=== PATIENT | female | born 1990 | race Caucasian/White ===

== ENCOUNTER 2020-07-21 17:47 | Emergency (ER) | payer BC ==
[2020-07-21 17:52] VITALS: BP 126/86; PULSE 100; RESP 18; TEMP 98.5
[2020-07-21] MEDS ORDERED: MORPHINE SULFATE 4 MG/ML SYRINGE IV STA (18:49)
[2020-07-21] MEDS ORDERED: SODIUM CHLORIDE 0.9% 1,000 ML IV STA (18:49)
--- NOTE | 2020-07-21 18:50 | ED ---
Abdominal Pain HPI - General Chief Complaint: Abdominal Pain Stated Complaint: Abd pain Time Seen by Provider: 07/21/20 17:55 Source: patient Mode of arrival: ambulatory Limitations: no limitations - History of Present Illness Initial Comments: Patient is a 30-year-old female with past surgical history of hysterectomy with bilateral salpingo-oophorectomy, appendectomy who presents to the emergency department with reported right lower quadrant abdominal pain. Patient reports that the pain has been present for the past 6-7 years. She had an appendectomy and hysterectomy due to the pain however reports that she continues to suffer from it. Denies dysuria, hematuria or difficulty voiding. Denies melenic stools or hematochezia. Does have a family history of inflammatory bowel disease. Dad suffers from Crohn's. No fevers or chills. Reports the pain became worse today. She works at a factory lifting heavy boxes. States that she felt a bulge in the right lower quadrant. Pain has been constant since onset. She does not take any medications at home for her symptoms. Denies any abnormal vaginal discharge. No back or flank pain. No other alleviating, precipitating or modifying factors - Related Data Allergies Allergy/AdvReac Type Severity Reaction Status Date / Time No Known Allergies Allergy Verified 07/21/20 17:52 Review of Systems ROS Statement: Those systems with pertinent positive or pertinent negative responses have been documented in the HPI. ROS Other: All systems not noted in ROS Statement are negative. Past Medical History Past Medical History: No Reported History History of Any Multi-Drug Resistant Organisms: None Reported Past Surgical History: Adenoidectomy, Section, Hysterectomy, Orthopedic Surgery Past Psychological History: No Psychological Hx Reported Smoking Status: Current every day smoker Past Alcohol Use History: Occasional Past Drug Use History: None Reported General Exam Limitations: no limitations Course Vital Signs 07/21/20 17:50 Temperature 98.5 F Pulse Rate 100 Respiratory 18 Rate Blood Pressure 126/86 O2 Sat by Pulse 99 Oximetry Medical Decision Making - Medical Decision Making Upon arrival patient is placed in room 22. A thorough history and physical exam was performed. Patient is tender in the right lower quadrant. No signs of hernia. Did recommend laboratory studies and a CT. I would raises are reviewed and discussed the patient. CT does demonstrate cholelithiasis however no signs of pathology within the right lower quadrant. Results are discussed the patient. Did recommend follow-up with Dr. Coates for colonoscopy due to the history of inflammatory bowel disease in immediate family. The patient agreed to this. Given written and verbal discharge instructions and discharged home in stable condition. She is asked to return to the emergency room for any new or worsening symptoms - Lab Data Result diagrams: 07/21/20 19:07 07/21/20 19:07 Lab Results 07/21/20 07/21/20 07/21/20 Range/Units 19:07 19:07 19:07 WBC 9.9 (3.8-10.6) k/uL RBC 4.50 (3.80-5.40) m/uL Hgb 14.2 (11.4-16.0) gm/dL Hct 43.3 (34.0-46.0) % MCV 96.2 (80.0-100.0) fL MCH 31.6 (25.0-35.0) pg MCHC 32.8 (31.0-37.0) g/dL RDW 12.6 (11.5-15.5) % Plt Count 216 (150-450) k/uL MPV 7.6 Neutrophils % 62 % Lymphocytes % 28 % Monocytes % 5 % Eosinophils % 2 % Basophils % 1 % Neutrophils # 6.2 (1.3-7.7) k/uL Lymphocytes # 2.8 (1.0-4.8) k/uL Monocytes # 0.5 (0-1.0) k/uL Eosinophils # 0.2 (0-0.7) k/uL Basophils # 0.1 (0-0.2) k/uL Sodium 138 (137-145) mmol/L Potassium 3.6 (3.5-5.1) mmol/L Chloride 103 (98-107) mmol/L Carbon Dioxide 28 (22-30) mmol/L Anion Gap 7 mmol/L BUN 11 (7-17) mg/dL Creatinine 0.71 (0.52-1.04) mg/dL Est GFR (CKD-EPI)AfAm >90 (>60 ml/min/1.73 sqM) Est GFR (CKD-EPI)NonAf >90 (>60 ml/min/1.73 sqM) Glucose 90 (74-99) mg/dL Plasma Lactic Acid Terry (0.7-2.0) mmol/L Calcium 9.5 (8.4-10.2) mg/dL Total Bilirubin 0.3 (0.2-1.3) mg/dL AST 21 (14-36) U/L ALT 13 (4-34) U/L Alkaline Phosphatase 69 (38-126) U/L Total Protein 7.3 (6.3-8.2) g/dL Albumin 4.5 (3.5-5.0) g/dL Lipase 121 (23-300) U/L Urine Color Yellow Urine Appearance Clear (Clear) Urine pH 6.5 (5.0-8.0) Ur Specific [place] 1.020 (1.001-1.035) Urine Protein Negative (Negative) Urine Glucose (UA) Negative (Negative) Urine Ketones Negative (Negative) Urine Blood Negative (Negative) Urine Nitrite Negative (Negative) Urine Bilirubin Negative (Negative) Urine Urobilinogen <2.0 (<2.0) mg/dL Ur Leukocyte Esterase Negative (Negative) 07/21/20 Range/Units 19:07 WBC (3.8-10.6) k/uL RBC (3.80-5.40) m/uL Hgb (11.4-16.0) gm/dL Hct (34.0-46.0) % MCV (80.0-100.0) fL MCH (25.0-35.0) pg MCHC (31.0-37.0) g/dL RDW (11.5-15.5) % Plt Count (150-450) k/uL MPV Neutrophils % % Lymphocytes % % Monocytes % % Eosinophils % % Basophils % % Neutrophils # (1.3-7.7) k/uL Lymphocytes # (1.0-4.8) k/uL Monocytes # (0-1.0) k/uL Eosinophils # (0-0.7) k/uL Basophils # (0-0.2) k/uL Sodium (137-145) mmol/L Potassium (3.5-5.1) mmol/L Chloride (98-107) mmol/L Carbon Dioxide (22-30) mmol/L Anion Gap mmol/L BUN (7-17) mg/dL Creatinine (0.52-1.04) mg/dL Est GFR (CKD-EPI)AfAm (>60 ml/min/1.73 sqM) Est GFR (CKD-EPI)NonAf (>60 ml/min/1.73 sqM) Glucose (74-99) mg/dL Plasma Lactic Acid Terry 0.9 (0.7-2.0) mmol/L Calcium (8.4-10.2) mg/dL Total Bilirubin (0.2-1.3) mg/dL AST (14-36) U/L ALT (4-34) U/L Alkaline Phosphatase (38-126) U/L Total Protein (6.3-8.2) g/dL Albumin (3.5-5.0) g/dL Lipase (23-300) U/L Urine Color Urine Appearance (Clear) Urine pH (5.0-8.0) Ur Specific [place] (1.001-1.035) Urine Protein (Negative) Urine Glucose (UA) (Negative) Urine Ketones (Negative) Urine Blood (Negative) Urine Nitrite (Negative) Urine Bilirubin (Negative) Urine Urobilinogen (<2.0) mg/dL Ur Leukocyte Esterase (Negative) Disposition Clinical Impression: Abdominal pain Disposition: HOME SELF-CARE Condition: Stable Instructions (If sedation given, give patient instructions): Abdominal Pain (ED) Additional Instructions: I recommend you follow up with Dr. Garcia for a colonoscopy. Return to the emergency room for any new or worsening symptoms Is patient prescribed a controlled substance at d/c from ED?: No Referrals: Raphael Clements MD [Primary Care Provider] - 1-2 days Adina Garcia MD [STAFF PHYSICIAN] - 1-2 days Time of Disposition: 20:22
[2020-07-21 19:13] LABS: Basophils # (A) 0.1 k/uL (0-0.2); Basophils % (A) 1 %; Eosinophils # (A) 0.2 k/uL (0-0.7); Eosinophils % (A) 2 %; HCT 43.3 % (34.0-46.0); HGB 14.2 gm/dL (11.4-16.0); Lymphocytes # (A) 2.8 k/uL (1.0-4.8); Lymphocytes % (A) 28 %; MCH 31.6 pg (25.0-35.0); MCHC 32.8 g/dL (31.0-37.0); MCV 96.2 fL (80.0-100.0); Mean Platelet Volume 7.6; Monocytes # (A) 0.5 k/uL (0-1.0); Monocytes % (A) 5 %; Neutrophils # (A) 6.2 k/uL (1.3-7.7); Neutrophils % (A) 62 %; Platelet Count 216 k/uL (150-450); RDW 12.6 % (11.5-15.5); WBC 9.9 k/uL (3.8-10.6)
[2020-07-21 19:16] LABS: Appearance,Urine Clear (Clear); Bilirubin,Urine Negative (Negative); Blood,Urine Negative (Negative); Color,Urine Yellow; Glucose,Urine (UA) Negative (Negative); Ketones,Urine Negative (Negative); Leukocyte Esterase,Urine Negative (Negative); Nitrite,Urine Negative (Negative); PH, Urine 6.5 (5.0-8.0); Protein,Urine Negative (Negative); Urobilinogen,Urine <2.0 mg/dL (<2.0)
[2020-07-21 19:23] LABS: ALT 13 U/L (4-34); AST 21 U/L (14-36); African American GFR (CKD) >90 (>60 ml/min/1.73 sqM); Albumin 4.5 g/dL (3.5-5.0); Alkaline Phosphatase 69 U/L (38-126); Anion Gap 7 mmol/L; Blood Urea Nitrogen 11 mg/dL (7-17); Calcium 9.5 mg/dL (8.4-10.2); Carbon Dioxide 28 mmol/L (22-30); Chloride 103 mmol/L (98-107); Glucose 90 mg/dL (74-99); Lipase 121 U/L (23-300); Non-African American GFR(CKD) >90 (>60 ml/min/1.73 sqM); Potassium 3.6 mmol/L (3.5-5.1); Sodium 138 mmol/L (137-145); Total Bilirubin 0.3 mg/dL (0.2-1.3); Total Protein 7.3 g/dL (6.3-8.2)
--- NOTE | 2020-07-21 19:56 | CT ---
EXAMINATION TYPE: CT abdomen pelvis w con DATE OF EXAM: 07/21/2020 COMPARISON: None available. HISTORY: Right lower quadrant abdominal pain. CT DLP: 1169.5 mGycm Automated exposure control for dose reduction was used. TECHNIQUE: Helical acquisition of images was performed from the lung bases through the pelvis. CONTRAST: Performed without Oral Contrast and with IV Contrast, patient injected with 100ml mL of Isovue 300. FINDINGS: LUNG BASES: No significant abnormality is appreciated. LIVER/GB: No acute abnormality is appreciated. Gallstones without acute cholecystitis. PANCREAS: No significant abnormality is seen. SPLEEN: No significant abnormality is seen. ADRENALS: No significant abnormality is seen. KIDNEYS: No significant abnormality is seen. FREE AIR: No free air is visualized. RETROPERITONEAL ADENOPATHY: None visualized REPRODUCTIVE ORGANS: No significant abnormality is seen URINARY BLADDER: No significant abnormality is seen. PELVIC ADENOPATHY: None visualized. OSSEOUS STRUCTURES: No significant abnormality is seen. BOWEL: No significant abnormality is seen. Appendectomy seen. OTHER: None available. IMPRESSION: NO ACUTE ABNORMALITY. Cholelithiasis.
== END 2020-07-21 20:44 | disposition home or self-care (01) ==
LOC: EC 17:47
DX: R10.31 Right lower quadrant pain (principal); K80.20 Calculus of gallbladder without cholecystitis without obstruction; F17.200 Nicotine dependence, unspecified, uncomplicated; Z90.89 Acquired absence of other organs; Z90.710 Acquired absence of both cervix and uterus; Z90.722 Acquired absence of ovaries, bilateral
CPT/HCPCS: 36415; 80053; 83605; 83690; 85025; 81003; 74177; 99284; 96374; 96361; J2270; Q9967

== ENCOUNTER 2020-07-31 08:36 | Day surgery (SDC) | payer BC ==
[2020-07-26 14:13] VITALS: BMI 36.3
[~2020-07-31 08:36] MED LIST: LACTATED RINGERS 1,000 ML IV SCH; LIDOCAINE 1% (10MG/ML) FOR IV START INTRADERMA PRN
[2020-07-31 09:13] VITALS: RESP 16; TEMP 97.9
[2020-07-31 09:20] LABS: Glucose,Whole Blood 84 mg/dL (75-99)
[2020-07-31] MEDS ORDERED: PROPOFOL 10 MG/ML 20 ML VIAL IV ONE (09:42)
--- NOTE | 2020-07-31 10:40 | P.PCN ---
Date of Procedure: 07/31/20 Description of Procedure: BRIEF HISTORY: Patient is a 30-year-old female presenting for outpatient colonoscopy for evaluation of altered bowel function and abdominal pain. She reports a long- standing history of abdominal pain predominantly in the right abdomen. She has had multiple surgeries including hysterectomy and appendectomy with no improvement. She was started on Elavil in the clinic with some improvement in pain. She reports intermittent episodes of diarrhea and is constipated at baseline continue Metamucil daily. PROCEDURE PERFORMED: Colonoscopy with biopsy. PREOPERATIVE DIAGNOSIS: Altered bowel function, abdominal pain. ESTIMATED BLOOD LOSS: Minimal. IV sedation per Anesthesia. PROCEDURE: After informed consent was obtained, the patient, was brought into the endoscopy unit. IV sedation was administered by Anesthesia under continuous monitoring. Digital rectal examination was normal. Initially the Olympus CF-190 flexible video colonoscope was then inserted in the rectum, gradually advanced into the cecum without any difficulty. Careful examination was performed as the scope was gradually being withdrawn. Ileocecal valve and the appendiceal orifice were visualized and appeared normal. Prep was excellent. Mucosa of the cecum, ascending colon, transverse colon, descending colon, sigmoid colon, and rectum appeared normal with biopsies of the right and left colon and a normal appearing terminal ileum. Retroflexion was performed in the rectum and no lesions were seen. The patient tolerated the procedure well. IMPRESSION: Normal-appearing colon from rectum to cecum and normal appearing terminal ileum with biopsies of the right colon, left colon and terminal ileum. RECOMMENDATIONS: Findings of this examination were discussed with the patient. Okay to resume diet. Okay to resume medication. Follow up in clinic as scheduled for results of biopsies.
[2020-07-31 10:48] VITALS: BP 110/76; PULSE 71
== END 2020-07-31 11:03 | disposition home or self-care (01) ==
LOC: ORWHC2ENDO 08:36
PROVIDERS: ATTEND Internal Medicine
DX: K52.9 Noninfective gastroenteritis and colitis, unspecified (principal); Z90.710 Acquired absence of both cervix and uterus; F17.210 Nicotine dependence, cigarettes, uncomplicated; Z98.890 Other specified postprocedural states; Z97.2 Presence of dental prosthetic device (complete) (partial); Z90.89 Acquired absence of other organs; Z79.1 Long term (current) use of non-steroidal anti-inflammatories (NSAID); Z79.891 Long term (current) use of opiate analgesic; Z79.899 Other long term (current) drug therapy
CPT/HCPCS: 45380; 88305

== ENCOUNTER 2022-11-17 16:12 | Emergency (ER) | payer BC ==
[2022-11-17] MEDS ORDERED: CEPHALEXIN 500 MG CAP PO STA (16:58)
[2022-11-17] MEDS ORDERED: SULFAMETHOX-TMP 800-160MG 1 EACH TAB PO STA (16:58)
[2022-11-17] MEDS ORDERED: LIDOCAINE 1% INJ 10MG/ML (30 ML VIAL-PF) SQ ONE (16:58)
[2022-11-17] MEDS ORDERED: IBUPROFEN 800 MG TAB PO STA (17:28)
--- NOTE | 2022-11-17 18:06 | ED ---
Skin/Abscess/FB HPI - General Chief complaint: Skin/Abscess/Foreign Body Stated complaint: left leg cyst Time Seen by Provider: 11/17/22 16:57 Source: patient Mode of arrival: ambulatory Limitations: no limitations - History of Present Illness Initial comments: Patient is a 32-year-old female who presents to the emergency department for abscess of left inner thigh. Patient states she has intermittently had this abscess for the past year and has self drained several times. States over the past couple days the abscess has been increasing in size. She denies fever, chills, nausea, vomiting. Denies history of MRSA. - Related Data Home Medications Medication Instructions Recorded Confirmed Amitriptyline HCl 25 mg PO HS 07/26/20 07/31/20 Multivitamins, Thera [Multivitamin 1 tab PO DAILY 07/26/20 07/31/20 (formulary)] traMADol HCL 50 mg PO BID PRN 07/26/20 07/31/20 Previous Rx's Medication Instructions Recorded Cephalexin [Keflex] 500 mg PO Q6HR #40 cap 11/17/22 Ibuprofen [Motrin] 800 mg PO Q8HR PRN #30 tab 11/17/22 Sulfamethox-Tmp 800-160Mg [Bactrim 1 each PO Q12HR #20 tab 11/17/22 Ds] Allergies Allergy/AdvReac Type Severity Reaction Status Date / Time No Known Allergies Allergy Verified 11/17/22 16:33 Review of Systems ROS Statement: Those systems with pertinent positive or pertinent negative responses have been documented in the HPI. ROS Other: All systems not noted in ROS Statement are negative. Past Medical History Past Medical History: No Reported History Additional Past Medical History / Comment(s): Hypoglycemic. History of Any Multi-Drug Resistant Organisms: None Reported Past Surgical History: Appendectomy, Section, Hysterectomy Additional Past Surgical History / Comment(s): Ovarian cysts drained numerous times. Cyst removed from left leg. Section X3. Past Anesthesia/Blood Transfusion Reactions: No Reported Reaction Past Psychological History: No Psychological Hx Reported Smoking Status: Current every day smoker Past Alcohol Use History: Occasional Past Drug Use History: None Reported - Past Family History Mother Family Medical History: No Reported History General Exam Limitations: no limitations General appearance: alert, in no apparent distress Head exam: Present: atraumatic, normocephalic, normal inspection Respiratory exam: Present: normal lung sounds bilaterally. Absent: respiratory distress, wheezes, rales, rhonchi, stridor Cardiovascular Exam: Present: regular rate, normal rhythm, normal heart sounds. Absent: systolic murmur, diastolic murmur, rubs, gallop, clicks Extremities exam: Present: other (3 by 2 cm abscess over left proximal inner thigh near fold no surrounding cellulitis ) Neurological exam: Present: alert, oriented X3, CN II-XII intact Psychiatric exam: Present: normal affect, normal mood Skin exam: Present: warm, dry, intact, normal color. Absent: rash Course Vital Signs 11/17/22 11/17/22 16:31 18:49 Temperature 98.5 F 97.6 F Pulse Rate 86 82 Respiratory 20 16 Rate Blood Pressure 117/76 126/84 O2 Sat by Pulse 99 99 Oximetry Procedures - Incision & Drainage Site: lower extremity Anesthetic Used: lidocaine 1% I&D Cleaning Method: Betadine Sterile Field Used?: Yes Scalpel Used: #11 I&D Drainage Obtained: Pus, Blood Culture Obtained?: Yes Patient Tolerated Procedure: well, no complications Medical Decision Making - Medical Decision Making Was pt. sent in by a medical professional or institution (, PA, LINOTYPER, urgent care, hospital, or alf...) When possible be specific @ -No Did you speak to anyone other than the patient for history (EMS, parent, family, police, friend...)? What history was obtained from this source @ -No Did you review nursing and triage notes (agree or disagree)? Why? @ -I reviewed and agree with nursing and triage notes Were old charts reviewed (outside hosp., previous admission, EMS record, old EKG, old radiological studies, urgent care reports/EKG's, alf records)? Report findings @ -No old charts were reviewed Differential Diagnosis (chest pain, altered mental status, abdominal pain women, abdominal pain men, vaginal bleeding, weakness, fever, dyspnea, syncope, headache, dizziness, GI bleed, back pain, seizure, CVA, palpatations, mental health)? @ -Abscess, cyst, cellulitis EKG interpreted by me (3pts min.). @ -None X-rays interpreted by me (1pt min.). @ -None done CT interpreted by me (1pt min.). @ -None done U/S interpreted by me (1pt. min.). @ -None done What testing was considered but not performed or refused? (CT, X-rays, U/S, labs)? Why? @ -None What meds were considered but not given or refused? Why? @ -None Did you discuss the management of the patient with other professionals (professionals i.e. , PA, LINOTYPER, lab, RT, psych nurse, social media community manager, hall manager, teacher, tax revenue officer, pillowcase cleaner)? Give summary @ -No Was smoking cessation discussed for >3mins.? @ -No Was critical care preformed (if so, how long)? @ -No Were there social determinants of health that impacted care today? How? (Homelessness, low income, unemployed, alcoholism, drug addiction, transportation, low edu. Level, literacy, decrease access to med. care, [facility], rehab)? @ -No Was there de-escalation of care discussed even if they declined (Discuss DNR or withdrawal of care, Hospice)? DNR status @ -No What co-morbidities impacted this encounter? (DM, HTN, Smoking, COPD, CAD, Cancer, CVA, ARF, Chemo, Hep., AIDS, mental health diagnosis, sleep apnea, morbid obesity)? @ -None Was patient admitted / discharged? Hospital course, mention meds given and route, prescriptions, significant lab abnormalities, going to OR and other pertinent info. @ -Discharged. Abscess was drained culture obtained. No systemic symptoms or signs patient placed on Keflex and Bactrim. We discussed aftercare in detail. Undiagnosed new problem with uncertain prognosis? @ -No Drug Therapy requiring intensive monitoring for toxicity (Heparin, Nitro, Insulin, Cardizem)? @ -No Were any procedures done? @ -No Diagnosis/symptom? @ -abscess Acute, or Chronic, or Acute on Chronic? @ -Acute Uncomplicated (without systemic symptoms) or Complicated (systemic symptoms)? @ -Uncomplicated Side effects of treatment? @ -No Exacerbation, Progression, or Severe Exacerbation? @ -No Poses a threat to life or bodily function? How? (Chest pain, [place], [place], pneumonia, PE, COPD, DKA, ARF, appy, cholecystitis, CVA, Diverticulitis, Homicidal, Suicidal, threat to staff... and all critical care pts) @ -No Dr. Cuadra is my attending Disposition Clinical Impression: Abscess Disposition: HOME SELF-CARE Condition: Good Instructions (If sedation given, give patient instructions): Abscess Incision and Drainage (ED), Abscess (ED) Additional Instructions: Take antibiotic as directed.Use warm compress throughout the day to assist drainage. Change dressing every 24 hours or if saturated. Keep wound clean and dry. Wash the wound with a mild soap during dressing change and be sure to dry thoroughly. If you need more dressing supplies or tape you can find some at a local pharmacy. Take Tylenol or Motrin for pain. Follow-up with primary care pr ovider in 1 to 2 days. Return to the emergency department if you experience new, concerning, or worsening symptoms. Prescriptions: Sulfamethox-Tmp 800-160Mg [Bactrim Ds] 1 each PO Q12HR #20 tab Cephalexin [Keflex] 500 mg PO Q6HR #40 cap Ibuprofen [Motrin] 800 mg PO Q8HR PRN #30 tab PRN Reason: Pain Is patient prescribed a controlled substance at d/c from ED?: No Referrals: None,Stated [Primary Care Provider] - 1-2 days
[2022-11-17 18:51] VITALS: BP 126/84; PULSE 82; RESP 16; TEMP 97.6
== END 2022-11-17 18:54 | disposition home or self-care (01) ==
LOC: EC 16:12
DX: L02.416 Cutaneous abscess of left lower limb (principal); F17.200 Nicotine dependence, unspecified, uncomplicated
CPT/HCPCS: 87070; 87205; 99283; 10060; J2001